=== PATIENT | female | born 1960 | race Caucasian/White ===

== ENCOUNTER 2022-09-11 11:02 | Outpatient (RCR) | payer BC ==
[~2022-09-11 11:02] MED LIST: FIORICET 325 MG1 TA1 PO; MEGACE; NORCO 325 MG-51 TAB PO; PROMETHAZINE12.5 M5 PO; SYNTHROID0.1 MG PO
== END 2022-10-05 | disposition home or self-care (01) ==
LOC: WSPT
DX: M16.11 Unilateral primary osteoarthritis, right hip (principal)